=== PATIENT | female | born 1995 | race Caucasian/White ===

== ENCOUNTER 2020-11-21 23:05 | Emergency (ER) | payer BC, OTHER ==
--- OUTSIDE RECORDS SUMMARY | 2020-11-21 23:08 | XMS REPORT | Continuity of Care Document ---
:1995 Author Organization Formerly [facility] t Address [address] [place] [address] Dr. [address]. [address] [place] [address] Care Team Providers Name Role Phone Fozia Ty MD Primary Care Physician [phone] Tanika JOHNS Attending Clinician Unavailable Fozia Ty MD Attending Clinician Payers Payer Name Policy Type Policy Effective Date Expiration Date Sour ce Number [facility] [place] [place] EXCHANGEAMBETTER [id number] 2020 brie FROM [place] 00:00:00 Mandaeism [id number] 2020-PresentExcha nge Problems Condition Condition Condition Status Onset Resolution Last Treating Co mments Source Name Details Category Date Date Treatment Clinician Date Anxiety Anxiety Disease Active [facility] 09-27 [facility] 00:00: st 00 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 Social History Social Habit Start Date Stop Date Quantity Comments Source Alcohol intake 2020-09-27 2020-09-27 Ex-drinker [facility] thodist 00:00:00 00:00:00 (finding) Tobacco use and 2020-09-27 2020-09-27 Never used Raza Bass ethodist exposure 00:00:00 00:00:00 [birth year] Raza oviedoodist 00:00:00 00:00:00 Smoking Status Start Date Stop Date Source Never smoker Raza cavanaugh Medications Ordered Filled Start Stop Current Ordering Indication Dosage Frequency Signature Comments Components Source Medication Medication Date Date Medication? Clinician (SIG) Name Name lubiproston 2020- Yes 8ug Q.5D Take 1 Brandy ston e (Amitiza) 10-24- capsule (8 M ethodi 8 MCG 00:00: 23:59 mcg total) st capsule 00 :00 by mouth 2 (two) times a day with meals for 30 days. emtricitabi 2020- Yes 1{tbl} QD Take 1 [place] ne-tenofovi 10-23 tablet by In thbishop r DF 00:00: 23:[address] (Truvada) 00 :00 daily for 200-300 mg 90 days. per tablet lubiproston 2020- No 24ug Q.5D Take 1 Brandy ston e (AMITIZA) 10-22- capsule Meth bishop 24 MCG 00:00: 00:00 ([address] capsule 00 :00 total) by mouth 2 (two) times a day with meals for 30 days. plecanatide 2020- No 3mg QD Take 1 Brandy ston (TRULANCE) 10-22-05 tablet (3 Met hodi 3 mg tablet 00:00: 00:00 mg total) st 00 :00 by mouth daily. Can be taken with or without food. L 2020- No Take by Person norgest/e.e 09-27 mouth. Metho di stradioL-e. 09:38: 00:00 st estrad 38 :00 (Ashlyna) 0.15 mg-30 mcg (84)/10 mcg (7) tablets,dos e pack,3 month escitalopra 2020- No 10mg QD Take 10 mg Raza bass (LEXAPRO) 09-27 by mouth Met hodi 10 MG 09:38: 00:[address] tablet 38 :00 escitalopra Yes Anxiety 10mg QD Take 1 [place] m (LEXAPRO) -11 tablet (10 Me thodi 10 MG 00:00: mg total) st tablet 00 by mouth daily. L Yes 1{tbl} QD Take 1 [facility] norgest/e.e 11 control tablet by Carmina stradioL-e. 00:00: counseling mouth st estrad 00 daily. (Ashlyna) 0.15 mg-30 mcg (84)/10 mcg (7) tablets,dos e pack,3 month emtricitabi 2020- No High risk 1{tbl} QD Take 1 [facility] ne-tenofovi 09-27 04-06 heterosexua tablet by Carmina r AF 00:00: 00:[address] (Descovy) 00 :00 daily. 200-25 mg tablet linaCLOtide 2020- No Irritable 145ug QD Take 1 [facility] (Linzess) 09-2705 bowel capsule Metho di 145 mcg 00:00: 00:00 syndrome (145 mcg s t capsule 00 :00 with total) by constipatio mouth n daily before breakfast. Immunizations Ordered Immunization Filled Immunization Date Status Commen ts Source Name Name PFIZER COVID-19 MRNA 2020-10-30 Completed [place] VACCINATION 00:00:00 [facility] Vital Signs Vital Name Observation Time Observation Value Comments Source Body height 2020-09-27 08:44:00 172.7 cm Raza Saldaña Body weight 2020-09-27 08:44:00 65.772 kg Raza Saldaña BMI 2020-09-27 08:44:00 22.05 kg/m2 Raza Saldaña Procedures Procedure Date / Time Performed Performing Clinician Formerly [facility] e HIV 1/2020-10-12 09:20:00 Sherine Ty In thodist ANTIGEN/ANTIBODY, Fozia FOURTH GENERATION W/RFL HEPATITIS B SURFACE 2020-10-12 09:20:00 Sherine Ty n Mandaeism ANTIGEN Fozia HEPATITIS C ANTIBODY 2020-10-12 09:20:00 Sherine Ty on Piotr Marcelo BASIC METABOLIC PANEL 2020-10-12 09:20:00 Sherine Ty Nii erickson Mandaeism Fozia RPR SCREEN 2020-10-12 09:20:00 Karson Yoanaelysia Person In nikiodist Fozia Plan of Care Planned Activity Planned Date Details Comments Source Future Scheduled 2021-02-17 INFLUENZA VACCINE [place] [facility] Test 00:00:00 [code = INFLUENZA VACCINE] Future Scheduled 2020-11-20 COVID-19 VACCINE (2 [place] [facility] Test 00:00:00 - Pfizer 2-dose series) [code = COVID-19 VACCINE (2 - Pfizer 2-dose series)] Future Scheduled 2017 Screening for [facility] thodist Test 00:00:00 malignant neoplasm of cervix (procedure) [code = 259106951] Future Scheduled 2012 CHLAMYDIA SCREENING [place] [facility] Test 00:00:00 [code = CHLAMYDIA SCREENING] Encounters Start End Encounter Admission Attending Care Care Encounter Source Date/Time Date/Time Type Type Clinicians Facility Department ID 2020-10-30 2020-10-30 Outpatient [facility] [id number] [place] 00:00:00 00:00:[address] 2020-09-27 2020-09-27 Outpatient [facility] [id number] [place] 00:00:00 00:00:[address]ER[address] Results Test Description Test Time Test Comments Results Result Comments Source Basic metabolic panel 2020-10-13 22:45:00 Test Item Value Reference Range Interpretation Comme nts Glucose (test code = 91 mg/dL 65-99 Fasting 2345-7) reference inter luca BUN (test code = 9 mg/dL 7-25 3094-0) Creatinine (test code = 0.73 mg/dL 0.50-1.10 2160-0) EGFR Non-Afr. Icelandic 115 See_Comment [Aut omated message] (test code = 2775) The syste m which generated this result transmitted ref erence range: > OR = 6 0 mL/min/1.73m2. The reference range was not used to interpr et this result as normal/abnormal . EGFR 134 See_Comment [Auto mated message] (test code = 13980-8) The sy stem which generated this result transmitted ref erence range: > OR = 6 0 mL/min/1.73m2. The reference range was not used to interpr et this result as normal/abnormal . BUN/creatinine ratio NOT APPLICABLE See_Comment [Aut omated message] (test code = 3097-3) The sys tem which generated this result transmitted ref erence range: 6 - 22 ( calc). The reference r riaz was not used to int erpret this result as normal/abnormal . Sodium (test code = 139 mmol/L 565-630 3894-2) Potassium (test code = 4.2 mmol/L 3.5-5.3 2823-3) Chloride (test code = 103 mmol/L 98-110 5-0) CO2 (test code = 28 mmol/L 20-32 2027-9) Calcium (test code = 9.7 mg/dL 8.6-10.2 88495-6) SUDHA (test code = SUDHA) FASTING:YES FASTING: YES RAC (test code = RAC) Performing Organization Information: Site ID: [facility] Name: [facility] Address: [address] [place] [address] Director: Virgil Land [facility] MandaeismHepatitis B surface [id number] 22:45:00 Test Item Value Reference Range Interpretation Comments Hepatitis B surface NON-REACTIVE NON-REACTIVE Ag (test code = 5196-1) SUDHA (test code = SUDHA) FASTING:YES FASTING: YES RAC (test code = RAC) Performing Organization Information: Site ID: [facility] Name: [facility] Address: [address] [place] [address] Director: Virgil Person MethodistRPR [id number] 22:45:00 Test Item Value Reference Range Interpretation Comments RPR (monitor) NON-REACTIVE NON-REACTIVE w/refl titer (test code = 25420-6) SUDHA (test code = FASTING:YES FASTING: YES SUDHA) RAC (test code = Performing Organization RAC) Information: Site ID: [facility] Name: [facility] Address: [address] [place] [id number] Director: Virgil Land [facility] MethodistHepatitis C [id number] 22:45:00 Test Item Value Reference Range Interpretation Comments Hepatitis C Ab NON-REACTIVE NON-REACTIVE (test code = 78929-5) Signal/cutoff 0.02 <1.00 HCV antibody was (test code = non-reactive. 81027-5) There is no laboratory evidence of HCV infection. In m ost cases, no furth er action is required. However,if rece nt HCV exposure is suspected, a te st for HCV RNA(fran t code 62051) is suggested. For additional information ple ase refer tohttp://educat [employer] .ShoorK/faq/HJV90r9 (Th is link is anita dietz provided for informational/e kenyon ational purpose s only.) SUDHA (test code = FASTING:YES SUDHA) FASTING: YES RAC (test code = Performing RAC) Organization Information: Site ID: [id number] Name: [facility] Address: [address] [place] [phone] Director: Virgil Land Person MethodistHIV 1/2 ANTIGEN/ANTIBODY, FOURTH GENERATION [id number] 22:45:00 Test Item Value Reference Range Interpretation Comments HIV AG/AB NON-REACTIVE NON-REACTIVE HIV-1 antigen a nd 4th gen HIV-1/HIV-2 ant ibodies (test code were notdetecte d. There = 62139-2) is no laborator y evidence of HIVinfection . PLEASE NOTE: This info rmation has been disclo sed pashalinda from records wh ose confidentiality may beprotected by state law. If your state requires suchprotection, then the state law prohi bits you frommaking any further disclosure of t he informationwith out the specific writte n consent of the personto whom it pertains, or as otherwise permitted by erik retana.A general authori zation for the release of medical orother informa tion is NOT sufficient for this purpose. For a dditional information ple ase refer tohttp://educat ion.KBLE/ faq/WEH734 (This link is b eing provided for informational/e ducational purposes only.) The performance of this assay has not been clinicallyvalid ated in patients less t juárez 2 years old. SUDHA (test FASTING:YES code = SUDHA) FASTING: YES RAC (test Performing code = RAC) Organization Information: Site ID: [id number] Name: [facility] Address: [address] [place] [phone] Director: Virgil Saldaña
[2020-11-22 00:45] LABS: Absolute Lymphocytes (CBC) 0.7 K/uL (0.7-4.9); Basophils % 0.2 % (0-1.3); Hematocrit 47.3 % (36.0-45.0); RBC Red Blood Cell Count 5.82 M/uL (3.86-4.86)
[2020-11-22] MEDS ORDERED: MORPHINE 4 MG/ML SYR ONE (00:53)
[2020-11-22] MEDS ORDERED: ONDANSETRON 4 MG/2 ML VIAL ONE (00:53)
[2020-11-22] MEDS ORDERED: FAMOTIDINE 20 MG/2 ML VIAL IV ONE (00:53)
[2020-11-22] MEDS ORDERED: NA CHLORIDE 0.9% 2,000 ML ONE (00:53)
[2020-11-22 00:58] LABS: Albumin 4.4 g/dL (3.4-5.0); Bilirubin Direct 0.1 mg/dL (0-0.2); Bilirubin Total 0.3 mg/dL (0.2-1.0); Potassium 3.8 mmol/L (3.5-5.1); Protein, Total 9.1 g/dL (6.4-8.2)
[2020-11-22 01:46] LABS: Blood Morphology Comment NOT SEEN (NOT SEEN); Platelet Estimate ADEQ
[2020-11-22 01:51] LABS: Urine Blood 3+ (Negative); Urine Glucose Negative (Negative); Urine Protein 1+ (Negative); Urine Specific Gravity >=1.030 (1.005-1.030)
--- NOTE | 2020-11-22 03:27 | ER ---
Nurse's Notes [facility] Name: Adalberto De Souza Age: 25 yrs Sex: Female : 1995 Arrival Date: 11/21/2020 Time: 23:08 Bed 2 Private MD: Diagnosis: Infectious gastroenteritis and colitis, unspecified Presentation: 11/22 00:22 Chief complaint: Patient states: LOWER ABDOMINAL PAIN, 8/10, SHARP PAINS. Spouse and/or rv significant other states: PATIENT ATE LEFT OVER STEAK, AROUND 6PM STARTED HAVING LOWER ABDOMINAL PAINS, AT 10 PM, PATIENT STARTED VOMITING AND EPISODES OF DIARRHEA. Coronavirus screen: Client denies travel out of the [place] in the last 14 days. Ebola Screen: No symptoms or risks identified at this time. Initial Sepsis Screen: Does the patient meet any 2 criteria? No. Patient's initial sepsis screen is negative. Does the patient have a suspected source of infection? No. Patient's initial sepsis screen is negative. Risk Assessment: Do you want to hurt yourself or someone else? Patient reports no desire to harm self or others. Onset of symptoms was November 21, 2020 at 18:00. 00:22 Method Of Arrival: Ambulatory rv 00:22 Acuity: ROWAN 3 rv Triage Assessment: 00:24 General: Appears ill, Behavior is calm, cooperative. Pain: Complains of pain in rv suprapubic area, right lower quadrant and left lower quadrant Pain does not radiate. Pain currently is 8 out of 10 on a pain scale. Quality of pain is described as aching, sharp, Pain began 2200. Neuro: Level of Consciousness is awake, alert, obeys commands, Oriented to person, place, time, situation. Cardiovascular: Patient's skin is warm and dry. Respiratory: Airway is patent Respiratory effort is even, unlabored. GI: Abdomen is flat, non-distended, Bowel sounds present X 4 quads. Reports lower abdominal pain. Derm: Skin is intact. 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 - Social history:: Smoking status: Patient denies any tobacco usage or history of. Patient/guardian denies using alcohol, street drugs, The patient lives with family. - Family history:: not pertinent. Screenin:25 Abuse screen: Denies threats or abuse. Denies injuries from another. Nutritional rv screening: No deficits noted. Tuberculosis screening: No symptoms or risk factors identified. Fall Risk None identified. Vital Signs: 00:22 BP 123 / 96; Pulse 101; Resp 19; Temp 98.2; Pulse Ox 100% ; Weight 64.86 kg; Height 5 rv ft. 8 in. (172.72 cm); Pain 8/10; 01:30 BP 112 / 72; Pulse 89; Resp 17; Pulse Ox 100% on R/A; rv 00:22 Body Mass Index 21.74 (64.86 kg, 172.72 cm) rv ED Course: 11/21 23:08 Patient arrived in ED. bp1 11/22 00:18 Leo Langley MD is Attending Physician. ma2 00:22 William Wilson RN is Primary Nurse. rv 00:24 Triage completed. rv 00:25 Arm band placed on Patient placed in the treatment room, on a stretcher, Patient rv notified of wait time. 00:26 Patient has correct armband on for positive identification. Pulse ox on. NIBP on. rv 00:30 Inserted saline lock: 20 gauge in right antecubital area, using aseptic technique. rv Blood collected. 00:30 Initial lab(s) drawn, by me, sent to lab. rv 02:07 CT Abd/Pelvis - IV Contrast Only In Process Unspecified. EDMS 03:35 No provider procedures requiring assistance completed. IV discontinued, intact, rv bleeding controlled, No redness/swelling at site. Pressure dressing applied. Administered Medications: 00:40 Drug: NS 0.9% 1000 ml Route: IV; Rate: 1 bolus; Site: right antecubital; rv 01:29 Follow up: IV Status: Completed infusion; IV Intake: 1000ml rv 00:40 Drug: NS 0.9% 1000 ml Route: IV; Rate: 1 bolus; Site: right antecubital; rv 03:36 Follow up: IV Status: Completed infusion; IV Intake: 1000ml rv 00:40 Drug: Zofran (Ondansetron) 4 mg Route: IVP; Site: right antecubital; rv 01:30 Follow up: Response: No adverse reaction rv 00:41 Drug: morphine 4 mg Route: IVP; Site: right antecubital; rv 01:30 Follow up: Response: No adverse reaction; Marked relief of symptoms; Pain is decreased; rv RASS: Alert and Calm (0) 00:41 Drug: Pepcid (famotidine) 20 mg Route: IVP; Site: right antecubital; rv 01:30 Follow up: Response: No adverse reaction rv 03:16 Drug: Flagyl (metroNIDAZOLE) 1 grams Route: PO; rr5 03:35 Follow up: Response: Medication administered at discharge. rv 03:17 Drug: Rocephin (cefTRIAXone) 1 grams Route: IV; Rate: calculated rate; Site: right rr5 antecubital; 03:35 Follow up: IV Status: Completed infusion; IV Intake: 10ml rv Intake: 01:29 IV: 1000ml; Total: 1000ml. rv 03:35 IV: 10ml; Total: 1010ml. rv 03:36 IV: 1000ml; Total: 2010ml. rv Outcome: 03:26 Discharge ordered by MD. gardiner 03:36 Discharged to home ambulatory, with family. rv 03:36 Condition: improved 03:36 Discharge instructions given to patient, Instructed on discharge instructions, follow up and referral plans. medication usage, Demonstrated understanding of instructions, follow-up care, medications, Prescriptions given X 4. 03:36 Patient left the ED. rv Signatures: Dispatcher [employer] EDMS Leo Langley MD MD ma2 William Wilson RN RN rv Wil Rodgers RN RN rr5 Nuria Petty
--- NOTE | 2020-11-22 03:27 | EDPHYS ---
Physician Documentation [facility] Name: Adalberto De Souza Age: 25 yrs Sex: Female : 1995 Arrival Date: 11/21/2020 Time: 23:08 Bed 2 Private MD: ED Physician Leo Langley HPI: 11/22 00:33 This 25 yrs old Female presents to ER via Ambulatory with complaints of ma2 Possible Food Poisioning. 00:33 The patient presents with abdominal pain. Onset: The symptoms/episode began/occurred ma2 gradually, 1 day(s) ago. Associated signs and symptoms: Pertinent negatives: anorexia, constipation, dysuria, fever. Severity of pain: At its worst the pain was moderate in the emergency department the pain is unchanged. The patient has not experienced similar symptoms in the past. 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 - Social history:: Smoking status: Patient denies any tobacco usage or history of. Patient/guardian denies using alcohol, street drugs, The patient lives with family. - Family history:: not pertinent. ROS: 00:33 Constitutional: Negative for fever, chills, and weight loss. ma2 00:33 All other systems are negative. Exam: 00:33 Constitutional: This is a well developed, well nourished patient who is awake, alert, ma2 and in no acute distress. Head/Face: Normocephalic, atraumatic. Eyes: Pupils equal round and reactive to light, extra-ocular motions intact. Lids and lashes normal. Conjunctiva and sclera are non-icteric and not injected. Cornea within normal limits. Periorbital areas with no swelling, redness, or edema. ENT: Nares patent. No nasal discharge, no septal abnormalities noted. Tympanic membranes are normal and external auditory canals are clear. Oropharynx with no redness, swelling, or masses, exudates, or evidence of obstruction, uvula midline. Mucous membranes moist. Neck: Trachea midline, no thyromegaly or masses palpated, and no cervical lymphadenopathy. Supple, full range of motion without nuchal rigidity, or vertebral point tenderness. No Meningismus. Chest/axilla: Normal chest wall appearance and motion. Nontender with no deformity. No lesions are appreciated. Cardiovascular: Regular rate and rhythm with a normal S1 and S2. No gallops, murmurs, or rubs. Normal PMI, no JVD. No pulse deficits. Respiratory: Lungs have equal breath sounds bilaterally, clear to auscultation and percussion. No rales, rhonchi or wheezes noted. No increased work of breathing, no retractions or nasal flaring. Abdomen/GI: Soft, non-tender, with normal bowel sounds. No distension or tympany. No guarding or rebound. No evidence of tenderness throughout. Back: No spinal tenderness. No costovertebral tenderness. Full range of motion. Skin: Warm, dry with normal turgor. Normal color with no rashes, no lesions, and no evidence of cellulitis. MS/ Extremity: Pulses equal, no cyanosis. Neurovascular intact. Full, normal range of motion. Neuro: Awake and alert, GCS 15, oriented to person, place, time, and situation. Cranial nerves II-XII grossly intact. Motor strength 5/5 in all extremities. Sensory grossly intact. Cerebellar exam normal. Normal gait. Vital Signs: 00:22 BP 123 / 96; Pulse 101; Resp 19; Temp 98.2; Pulse Ox 100% ; Weight 64.86 kg; Height 5 rv ft. 8 in. (172.72 cm); Pain 8/10; 01:30 BP 112 / 72; Pulse 89; Resp 17; Pulse Ox 100% on R/A; rv 00:22 Body Mass Index 21.74 (64.86 kg, 172.72 cm) rv MDM: 00:18 Patient medically screened. ma2 00:33 Differential diagnosis: appendicitis, gastritis, gastroesophageal reflux disease, ma2 Irritable bowel syndrome. 03:26 Data reviewed: vital signs, nurses notes. Counseling: I had a detailed discussion with ma2 the patient and/or guardian regarding: the historical points, exam findings, and any diagnostic results supporting the discharge/admit diagnosis, the presence of at least one elevated blood pressure reading (>120/80) during this emergency department visit, the need for outpatient follow up. Response to treatment: the patient's symptoms have markedly improved after treatment. 11/22 00:23 Order name: Basic Metabolic Panel; Complete Time: 01:53 ma2 11/22 00:23 Order name: CBC with Diff; Complete Time: 01:53 ma2 11/22 00:23 Order name: Hepatic Function; Complete Time: 01:53 ma2 11/22 00:23 Order name: Lipase; Complete Time: 01:53 ma2 11/22 00:57 Order name: Manual Differential; Complete Time: 01:53 EDMS 11/22 01:51 Order name: Urine --Ancillary (enter results) tt3 11/22 00:23 Order name: CT Abd/Pelvis - IV Contrast Only ma2 11/22 01:51 Order name: Urine Dipstick-Ancillary; Complete Time: 01:53 EDMS 11/22 00:23 Order name: IV Saline Lock; Complete Time: 00:41 ma2 11/22 00:23 Order name: Labs collected and sent; Complete Time: 00:42 ma2 11/22 00:23 Order name: Urine Dipstick-Ancillary (obtain specimen); Complete Time: 01:49 ma2 11/22 00:23 Order name: Urine Test (obtain specimen); Complete Time: 01:48 ma2 Administered Medications: 00:40 Drug: NS 0.9% 1000 ml Route: IV; Rate: 1 bolus; Site: right antecubital; rv 01:29 Follow up: IV Status: Completed infusion; IV Intake: 1000ml rv 00:40 Drug: NS 0.9% 1000 ml Route: IV; Rate: 1 bolus; Site: right antecubital; rv 03:36 Follow up: IV Status: Completed infusion; IV Intake: 1000ml rv 00:40 Drug: Zofran (Ondansetron) 4 mg Route: IVP; Site: right antecubital; rv 01:30 Follow up: Response: No adverse reaction rv 00:41 Drug: morphine 4 mg Route: IVP; Site: right antecubital; rv 01:30 Follow up: Response: No adverse reaction; Marked relief of symptoms; Pain is decreased; rv RASS: Alert and Calm (0) 00:41 Drug: Pepcid (famotidine) 20 mg Route: IVP; Site: right antecubital; rv 01:30 Follow up: Response: No adverse reaction rv 03:16 Drug: Flagyl (metroNIDAZOLE) 1 grams Route: PO; rr5 03:35 Follow up: Response: Medication administered at discharge. rv 03:17 Drug: Rocephin (cefTRIAXone) 1 grams Route: IV; Rate: calculated rate; Site: right rr5 antecubital; 03:35 Follow up: IV Status: Completed infusion; IV Intake: 10ml rv Disposition: 11/22/20 03:26 Discharged to Home. Impression: Infectious gastroenteritis and colitis, unspecified. - Condition is Stable. - Discharge Instructions: Food Choices to Help Relieve Diarrhea, Adult. - Prescriptions for Zofran 4 mg Oral Tablet - take 1 tablet by ORAL route every 12 hours As needed; 20 tablet. Pepcid 20 mg Oral Tablet - take 1 tablet by ORAL route once daily for 10 days; 10 tablet. Flagyl 500 mg Oral Tablet - take 4 tablet by ORAL route one time for 1 day; 4 tablet. Cipro 500 mg Oral Tablet - take 1 tablet by ORAL route every 12 hours for 7 days; 14 tablet. - Work release form, Medication Reconciliation Form, Thank You Letter, Antibiotic Education, Prescription Opioid Use form. - Follow up: Private Physician; When: Tomorrow; Reason: Continuance of care. Signatures: Dispatcher [employer] EDMS Leo Langley MD MD ma2 William Wilson RN RN rv Wil Rodgers RN RN rr5 Corrections: (The following items were deleted from the chart) 03:36 03:26 11/22/2020 03:26 Discharged to Home. Impression: Infectious gastroenteritis and rv colitis, unspecified. Condition is Stable. Prescriptions for Zofran 4 mg Oral Tablet - take 1 tablet by ORAL route every 12 hours As needed; 20 tablet, Pepcid 20 mg Oral Tablet - take 1 tablet by ORAL route once daily for 10 days; 10 tablet, Flagyl 500 mg Oral Tablet - take 4 tablet by ORAL route one time for 1 day; 4 tablet, Cipro 500 mg Oral Tablet - take 1 tablet by ORAL route every 12 hours for 7 days; 14 tablet. and Forms are Work release form, Medication Reconciliation Form, Thank You Letter, Antibiotic Education, Prescription Opioid Use. Follow up: Private Physician; When: Tomorrow; Reason: Continuance of care. ma2
[2020-11-22] MEDS ORDERED: metroNIDAZOLE 500 MG TABLET ONE (03:32)
[2020-11-22] MEDS ORDERED: CEFTRIAXONE/SWI 1gm 1 GM/10 ML SYR ONE (03:32)
[2020-11-22 03:57] VITALS: TEMP 98.2; O2SAT 100
[2020-11-22 03:58] VITALS: BP 112/72
[2020-11-22 04:44] LABS: Urine Specific Gravity/Preg >1.030 (1.005-1.030)
--- NOTE | 2020-11-22 11:53 | RAD REPORT ---
EXAM DESCRIPTION: CT ABDOMEN PELVIS WITH IV CONTRAST CLINICAL HISTORY: ABD PAIN TECHNIQUE: Contiguous axial images obtained through the abdomen and pelvis following the uneventful administration of IV contrast. Coronal and sagittal reformatted images were provided. This exam was performed according to our departmental dose-optimization program, which includes autom ated exposure control, adjustment of the mA and/or kV according to patient size and/or use of iterati ve reconstruction technique. COMPARISON: None available for comparison. FINDINGS: Lung bases: Clear Liver: Unremarkable Gallbladder and biliary system: Unremarkable Pancreas: Unremarkable Spleen: Unremarkable Adrenals: Unremarkable Kidneys: Normal renal cortical enhancement. No calculi. No hydronephrosis. Bowel: Nondilated fluid-filled small bowel loops within the lower abdomen extending to the terminal i leum. Air-fluid levels throughout the large bowel. The rectosigmoid colon appears somewhat thickened. No obstruction. Appendix: Normal caliber appendix. No findings to suggest acute appendicitis. Urinary bladder: The urinary bladder is decompressed. Reproductive: Unremarkable as visualized Lymph nodes: No pathologically enlarged lymph nodes. Peritoneum: No focal fluid collection. No free air. Vessels: No abdominal aortic aneurysm. Abdominal wall: Tiny fat-containing umbilical hernia. Bones: Unremarkable IMPRESSION: Small and large bowel air-fluid levels which can be seen in the setting of diarrhea. The rectosigmoid colon appears mildly thickened and may reflect nonspecific proctocolitis. Electronically signed by: Mercedez De La O MD 11/22/2020 2:37 AM CDT Due to temporary technical issues with the PACS/Fluency reporting system, reports are being signed by the in house radiologist without review as a courtesy to ensure prompt reporting. The interpreting r adiologist is fully responsible for the content of the report.
== END 2020-11-22 03:36 | disposition home or self-care (01) ==
LOC: ER 23:05
DX: A09 Infectious gastroenteritis and colitis, unspecified (principal); Z91.040 Latex allergy status; Z91.048 Other nonmedicinal substance allergy status
CPT/HCPCS: 96365; 96361; 85025; 80048; 36415; 81025; 80076; 81003; 83690; 74177; 96375; 99284; Q9967; J0696; J7030; J2405